=== PATIENT | female | born 1980 | race Hispanic/Latino ===

== ENCOUNTER 2022-12-04 02:15 | Emergency (ER) | payer OTHER ==
[~2022-12-04] VITALS: Ht 149.9 cm; Wt 71.0 kg
[2022-12-04 02:26] VITALS: BP 122/79
[2022-12-04 02:30] VITALS: BP 120/91
[2022-12-04] MEDS ORDERED: NITROBID2 % RE (02:39)
[2022-12-04] MEDS ORDERED: PROCTOZONE-HC2.5 % RE (02:39)
[2022-12-04 02:46] VITALS: BP 98/62
== END 2022-12-04 03:00 | disposition home or self-care (01) | DRG 395 ==
LOC: ED 02:15
DX: K60.0 Acute anal fissure (principal)